=== PATIENT | female | born 1955 | race Caucasian/White ===

== ENCOUNTER 2016-05-21 13:35 | Emergency (ER) | payer OTHER ==
[~2016-05-21] VITALS: Ht 160 cm; Wt 65.0 kg
[~2016-05-21 13:35] MED LIST: AZIT250T94 PO; CEPH-443 PO; CIPR500T4 PO; IBUP400T22 PO
[2016-05-21 13:41] VITALS: Ht 160 cm; Wt 65.0 kg
--- NOTE | 2016-05-21 14:37 | RADRPT ---
PROCEDURE: US Lower extremity Venous. CLINICAL INDICATION: PAIN TECHNIQUE: Multiple sonographic images of the left lower extremity deep venous system was obtained utilizing grayscale, color-flow, compressive sonography and doppler imaging with augmentation. The images were reviewed on a PACS workstation. COMPARISON: None. FINDINGS: There is normal compressibility and flow within the bilateral common femoral, deep femoral, superfic ial femoral and popliteal veins. The deep veins the calf were incompletely visualized. A 3.4 cm Muhammad's cyst is present in the left popliteal fossa IMPRESSION: No sonographic evidence for deep venous thrombosis. 3.4 x 2.3 cm left popliteal fossa Muhammad's cyst .Tomas Fam MD, Date Time Electronically viewed and signed by .Tomas Fam MD, MD on 05/21/2016 14:37 .M/
[2016-05-21] MEDS ORDERED: IBUP400T22 PO (15:06)
[2016-05-21] MEDS ORDERED: TRAM50TA2 PO (15:06)
--- NOTE | 2016-05-21 15:09 | ERD ---
ER Documentation Chief Complaint Date/Time DATE: 05/21/16 TIME: 15:07 Chief Complaint lt knee pain x 5 days , denies trauma HPI This 60-year-old female presents with left knee pain for last 5 days. She denies any trauma. The pain is behind her left knee and radiates slightly up from her posterior thigh and posterior calf. She denies any shortness of breath , fevers, weakness. ROS All systems reviewed and are negative except as per history of present illness. Medications Home Meds Active Scripts Tramadol HCl (Tramadol HCl) 50 Mg Tablet, 50 MG PO Q4 Y for PAIN, #15 TAB Prov:ELIGIO MARTIN MD 05/21/16 Ibuprofen* (Motrin*) 400 Mg Tab, 400 MG PO Q6, #20 TAB Prov:ELIGIO MARTIN MD 05/21/16 Ciprofloxacin Hcl* (Ciprofloxacin Hcl*) 500 Mg Tablet, 500 MG PO BID, #10 TAB Prov:CARMEN POTTERC 09/09/15 Cephalexin* (Keflex*) 500 Mg Capsule, 500 MG PO QID for 7 Days, CAP Prov:ARMEN PULLIAM PA-C 03/09/15 Ibuprofen* (Motrin*) 400 Mg Tab, 400 MG PO Q6, #14 TAB Prov:ELIGIO MARTIN MD 10/26/14 Azithromycin* (Zithromax*) 250 Mg Tablet, 250 MG PO .ZPACK DIRECTED, #6 TAB TAKE 500 MG (2 TABS) THE FIRST DAY THEN 250 MG (1 TAB) DAYS 2-5 Prov:ELIGIO MARTIN MD 10/26/14 Allergies Allergies: Coded Allergies: Penicillins (Verified Allergy, Unknown, rash, 03/09/15) latex (Verified Allergy, Unknown, hives, 09/09/15) PMhx/Soc History of Surgery: Yes (cholecystectomy 2002) Anesthesia Reaction: No Hx Neurological Disorder: No Hx Respiratory Disorders: No Hx Cardiac Disorders: Yes (htn) Hx Miscellaneous Medical Probl: Yes (type 2 diabetes) Hx Alcohol Use: No Hx Substance Use: No Hx Tobacco Use: No Smoking Status: Never smoker Physical Exam Vitals Vital Signs Date Time Temp Pulse Resp B/P Pulse Ox O2 Delivery O2 Flow Rate FiO2 05/21/16 13:41 97.5 78 16 138/67 98 Physical Exam Const: [] Alert, [id number]. Head: Atraumatic Eyes: Normal Conjunctiva ENT: Normal External Ears, Nose and Mouth. Neck: Full range of motion..~ No meningismus. Resp: Clear to auscultation bilaterally Cardio: Regular rate and rhythm, no murmurs Abd: Soft, non tender, non distended. Normal bowel sounds Skin: No petechiae or rashes Back: No midline or flank tenderness Ext: No cyanosis, or edema. Minimal tenderness in the popliteal area. And minimal left calf tenderness without swelling. Patient has no significant straight leg raise and no warmth, erythema. There is no appreciable deficits. Neur: Awake and alert Psych: Normal Mood and Affect Procedures/MDM Left lower extremity Doppler shows no evidence of DVT. There is a incidental Muhammad's cyst noted. Patient presents with left posterior knee pain for last 5 days with signs of Muhammad cyst. She likely has symptoms to arthritis of this Muhammad's cyst. There is no signs or symptoms to suggest cellulitis, ischemia, DVT, cellulitis. She will be treated with ibuprofen and tramadol and further observation at home. The patient was stable with no new complaints during the ER course. Clinically, there is no current evidence to suggest meningitis, sepsis, acute abdomen, pneumonia, acute coronary syndrome, pulmonary embolism, or any other emergent condition appearing to require further evaluation or hospitalization. The patient should certainly return for any new or worsening symptoms per the aftercare instructions. They should otherwise follow-up with her primary care doctor for reevaluation this week. Departure Diagnosis: Primary Impression: Knee pain Laterality: left Chronicity: acute Qualified Code: M25.562 - Acute pain of left knee Condition: Stable Patient Instructions: Knee Pain, Uncertain Cause Additional Instructions: NO Coagulo en ultrsonido. hay un cyste de artrtitis. Cheque otro vez con weller doctor primario en el proximo olea or regresa para mas o nueva simptomas. ELIGIO MARTIN MD May 21, 2016 15:08
== END 2016-05-21 15:24 | disposition home or self-care (01) ==
LOC: FTE 13:35
DX: M25.562 Pain in left knee (principal); I10 Essential (primary) hypertension; E11.9 Type 2 diabetes mellitus without complications; Z91.040 Latex allergy status
CPT/HCPCS: 93971; Z7502

== ENCOUNTER 2016-08-07 10:28 | Emergency (ER) | payer OTHER ==
[~2016-08-07] VITALS: Wt 78.0 kg
[~2016-08-07 10:28] MED LIST changes: +TRAM50TA2 PO
[2016-08-07] MEDS ORDERED: IBUPROFEN 200 MG TAB PO ONE (11:30)
[2016-08-07] MEDS ORDERED: HYDROCODONE/APAP (5/325) TAB PO ONE (11:30)
--- NOTE | 2016-08-07 12:04 | RADRPT ---
PROCEDURE: XR Foot. CLINICAL INDICATION: Trauma, pain TECHNIQUE: Three views of the left foot are available for review. COMPARISON: None available FINDINGS: No acute fracture or dislocation is identified. Mild hallux valgus deformity is noted. Bony minera lization is normal. There is no radiodense foreign body. IMPRESSION: 1. No evidence of acute fracture or dislocation. 2. Mild hallux valgus deformity. RPTAT: PP .Kareem Lerma MD, MD Date Time Electronically viewed and signed by .Kareem Lerma MD, on 08/07/2016 12:03 .R/
--- NOTE | 2016-08-07 12:05 | RADRPT ---
PROCEDURE: XR Wrist. CLINICAL INDICATION: Trauma, pain TECHNIQUE: AP, lateral and oblique views of the right wrist were performed. COMPARISON: No prior studies are available for comparison. FINDINGS: There is acute comminuted fracture of the distal radial metaphysis, with moderate angulation and dis placement of fracture fragments. No definite evidence of intra-articular fracture extension is iden tified. There is no dislocation. Also noted is mildly displaced acute avulsion fracture of the tip of the ulnar styloid process. No radiodense foreign body is identified. Bony mineralization is no rmal. IMPRESSION: 1. Acute comminuted fracture of the distal radial metaphysis and acute fracture of the ulnar styloi d process, as above. RPTAT: PP .Kareem Lerma MD, MD Date Time Electronically viewed and signed by .Kareem Lerma MD, on 08/07/2016 12:05 .R/
[2016-08-07] MEDS ORDERED: ACET1TAB40 PO (12:16)
[2016-08-07] MEDS ORDERED: IBUP400T22 PO (12:16)
--- NOTE | 2016-08-07 12:21 | ERD ---
ER Documentation Chief Complaint Date/Time DATE: 08/07/16 TIME: 12:19 Chief Complaint R ARM PAIN AFTER [facility] FALL TODAY HPI This 60-year-old female fell at home today after tripping and complains of right wrist pain and deformity. She has no restricted range of motion weakness. She also has pain in the lateral aspect of her left foot with some bruising. She has no bleeding laceration no history of head injury, neck pain, back pain, additional complaints other than her right wrist and left foot pain. ROS All systems reviewed and are negative except as per history of present illness. Medications Home Meds Active Scripts Ibuprofen* (Motrin*) 400 Mg Tab, 400 MG PO Q6, #20 TAB Prov:ELIGIO MARTIN MD 08/07/16 Acetaminophen with Codeine (Acetaminophen-Cod #3 Tablet) 1 Each Tablet, 1 TAB PO Q6H Y for PAIN, #14 TAB Prov:ELIGIO MARTIN MD 08/07/16 Tramadol HCl (Tramadol HCl) 50 Mg Tablet, 50 MG PO Q4 Y for PAIN, #15 TAB Prov:ELIGIO MARTIN MD 05/21/16 Ibuprofen* (Motrin*) 400 Mg Tab, 400 MG PO Q6, #20 TAB Prov:ELIGIO MARTIN MD 05/21/16 Ciprofloxacin Hcl* (Ciprofloxacin Hcl*) 500 Mg Tablet, 500 MG PO BID, #10 TAB Prov:CARMEN POTTER PA-C 09/09/15 Cephalexin* (Keflex*) 500 Mg Capsule, 500 MG PO QID for 7 Days, CAP Prov:ARMEN PULLIAM PA-C 03/09/15 Ibuprofen* (Motrin*) 400 Mg Tab, 400 MG PO Q6, #14 TAB Prov:ELIGIO MARTIN MD 10/26/14 Azithromycin* (Zithromax*) 250 Mg Tablet, 250 MG PO .ZPACK DIRECTED, #6 TAB TAKE 500 MG (2 TABS) THE FIRST DAY THEN 250 MG (1 TAB) DAYS 2-5 Prov:ELIGIO MARTIN MD 10/26/14 Allergies Allergies: Coded Allergies: Penicillins (Verified Allergy, Unknown, rash, 03/09/15) latex (Verified Allergy, Unknown, hives, 09/09/15) PMhx/Soc History of Surgery: Yes (cholecystectomy 2003) Anesthesia Reaction: No Hx Neurological Disorder: No Hx Respiratory Disorders: No Hx Cardiac Disorders: Yes (htn) Hx Miscellaneous Medical Probl: Yes (type 2 diabetes) Hx Alcohol Use: No Hx Substance Use: No Hx Tobacco Use: No Physical Exam Vitals Vital Signs Date Time Temp Pulse Resp B/P Pulse Ox O2 Delivery O2 Flow Rate FiO2 08/07/16 10:31 98.0 89 18 173/79 99 Physical Exam Const: [] Alert, [id number] per Head: Atraumatic Eyes: Normal Conjunctiva ENT: Normal External Ears, Nose and Mouth. Neck: Full range of motion..~ No meningismus. Resp: Clear to auscultation bilaterally Cardio: Regular rate and rhythm, no murmurs Abd: Soft, non tender, non distended. Normal bowel sounds Skin: No petechiae or rashes Back: No midline or flank tenderness Ext: No cyanosis, or edema producing tenderness and deformity of the right distal radius and wrist. There is no evidence of deficits of the radial median and ulnar nerve. There is no evidence of tendon disruption no bleeding or lacerations. Some tenderness in the lateral aspect left foot with some mild bruising without deformities, restricted range of motion weakness and no bleeding or lacerations Neur: Awake and alert Psych: Normal Mood and Affect Results 24 hrs Current Medications Medications (Trade) Dose Ordered Sig/Ginger Route PRN Reason Start Time Stop Time Status Last Admin Dose Admin Acetaminophen/ Hydrocodone Bitart (Lostant (5/325)) 1 tab ONCE ONCE PO 08/07/16 11:30 08/07/16 11:31 DC 08/07/16 11:16 Ibuprofen (Motrin) 400 mg ONCE ONCE PO 08/07/16 11:30 08/07/16 11:31 DC 08/07/16 11:16 Procedures/MDM X-ray right wrist 3V Interpreted by me: Scaphoid: [Normal] Bones: There is an impacted comminuted fracture of the right distal radius and ulnar styloid fracture. Joints: [No dislocation] Foreign body: [None]. Impression-impacted and comminuted right distal radius fracture and ulnar styloid process fracture X-ray left foot 3V Interpreted by me: Bones: [No fracture] Joints: [No dislocation] Foreign body: [None]. Patient have a normal left foot x-ray Patient was placed in a right short arm splint and sling and was neurovascular intact of the splint. Patient has signs of right wrist fracture which is closed without evidence of neurovascular compromise, infection, deficits as well as left foot contusion. She will referred to orthopedics for further evaluation this week. She should return sooner for redness, fevers, new worsening symptoms with primary doctor and orthopedist this week as directed. Departure Diagnosis: Primary Impression: Right foot sprain Encounter type: initial encounter Qualified Code: S93.601A - Right foot sprain, initial encounter Additional Impression: Wrist fracture, closed Encounter type: initial encounter Laterality: right Qualified Code: S62.101A - Wrist fracture, closed, right, initial encounter Condition: Stable Patient Instructions: Contusion, Foot, Fracture, Wrist [General] Referrals: GENESIS CHEN MD,IN KHOA Additional Instructions: X RAY DE PIE NORMAL HOY. TIENE FRACTUA EN OTONIEL. Va al weller doctor/ specialista para mas evaluacon en el proximo semana. posiblemente necesita autorizado de weller doctor primario para specialista. Regresa para fiebre, o mas o nueva simptomas. ELIGIO MARTIN MD August 07, 2016 12:20
== END 2016-08-07 12:48 | disposition home or self-care (01) ==
LOC: FTE 10:28
DX: S93.601A Unspecified sprain of right foot, initial encounter (principal); I10 Essential (primary) hypertension; E11.9 Type 2 diabetes mellitus without complications; S52.201A Unspecified fracture of shaft of right ulna, initial encounter for closed fracture; S52.501A Unspecified fracture of the lower end of right radius, initial encounter for closed fracture; W01.0XXA Fall on same level from slipping, tripping and stumbling without subsequent striking against object, initial encounter; Y92.009 Unspecified place in unspecified non-institutional (private) residence as the place of occurrence of the external cause; Z91.040 Latex allergy status
CPT/HCPCS: 29125; 73110; 73630; Z7502; Z7610